=== PATIENT | female | born 1930 | race Caucasian/White ===

== ENCOUNTER 2016-08-13 09:29 | Outpatient (CLI) | payer MEDICARE, OTHER ==
[2016-08-13 18:12] LABS: BASOPHILS % (AUTO) 0.5 %; EOSINOPHILS # (AUTO) 0.1 10^3/uL (0.0-0.7); EOSINOPHILS % (AUTO) 2.5 %; LYMPHOCYTES % (AUTO) 19.9 %; MEAN CORPUSCULAR HEMOGLOBIN 31.7 pg (27.0-31.0); MEAN CORPUSCULAR HGB CONC 33.2 g/dL (32.0-36.0); MEAN CORPUSCULAR VOLUME 95.4 fL (81.0-99.0); MEAN PLATELET VOLUME 8.4 fL (7.9-10.8); MONOCYTES # (AUTO) 0.4 10^3/uL (0.0-1.0); MONOCYTES % (AUTO) 8.6 %; NEUTROPHILS # (AUTO) 3.4 10^3/uL (1.5-6.6); NEUTROPHILS % (AUTO) 68.5 %; NUCLEATED RED BLOOD CELLS AUTO 0.1 /100WBC; RED BLOOD COUNT 4.09 10^6/uL (4.20-5.40); RED CELL DISTRIBUTION WIDTH 13.3 % (12.0-15.0); UNCORRECTED WHITE BLOOD COUNT 4.9 x10^3/uL; WHITE BLOOD COUNT 4.9 x10^3/uL (4.8-10.8)
[2016-08-13 18:21] LABS: ALBUMIN/GLOBULIN RATIO 1.4 (1.0-2.2); BILIRUBIN,TOTAL 0.7 mg/dL (0.2-1.0); CALCIUM 9.3 mg/dL (8.5-10.3); CREATININE 0.8 mg/dL (0.4-1.0); POTASSIUM 4.3 mmol/L (3.5-5.0); TOTAL PROTEIN 7.1 g/dL (6.7-8.2)
== END 2016-08-13 09:30 | disposition home or self-care (01) ==
LOC: LAB.F 09:29
PROVIDERS: ATTEND Internal Medicine
DX: R53.83 Other fatigue (principal); E55.9 Vitamin D deficiency, unspecified
CPT/HCPCS: 36415; 80053; 82306; 82652; 84443; 85025

== ENCOUNTER 2017-05-06 11:30 | Outpatient (CLI) | payer MEDICARE, OTHER ==
[2017-05-06 12:13] LABS: ALBUMIN 4.4 g/dL (3.2-5.5); ALBUMIN/GLOBULIN RATIO 1.5 (1.0-2.2); BILIRUBIN,TOTAL 0.7 mg/dL (0.2-1.0); CALCIUM 9.6 mg/dL (8.5-10.3); CREATININE 0.8 mg/dL (0.4-1.0); TOTAL PROTEIN 7.3 g/dL (6.7-8.2)
== END 2017-05-06 11:31 | disposition home or self-care (01) ==
LOC: LAB 11:30
PROVIDERS: ATTEND Family Medicine
DX: E55.9 Vitamin D deficiency, unspecified (principal); R53.83 Other fatigue; I10 Essential (primary) hypertension
CPT/HCPCS: 36415; 80053; 82306; 84443

== ENCOUNTER 2017-05-06 15:36 | Outpatient (CLI) | payer MEDICARE, OTHER ==
--- NOTE | 2017-05-07 12:15 | XRAY Report ---
DATE OF SERVICE: 05/06/2017 TWO VIEW LEFT RIBS: 05/06/2017 CLINICAL INDICATION: Pain. FINDINGS: Oblique views of the left ribs were obtained, with a marker at the site of maximal tenderness. There is no evidence of a displaced rib fracture. No definite pneumothorax is appreciated on these oblique views FINDINGS: NO EVIDENCE OF A DISPLACED LEFT RIB FRACTURE. TD: 05/07/2017 12:14
--- NOTE | 2017-05-07 12:17 | XRAY Report ---
DATE OF SERVICE: 05/06/2017 THREE VIEW LUMBAR SPINE: 05/06/2017 CLINICAL INDICATION: Back pain. FINDINGS: AP, lateral, and coned down views of the lumbar spine demonstrate moderate to severe degenerative disk and facet disease. There is degenerative anterolisthesis of L4 on L5 by 1 cm, and irregularity of the superior end plate of L4, suspicious for a mild compression fracture, age indeterminate. The bowel gas pattern appears unremarkable. Degenerative levoscoliosis is present. IMPRESSION: MODERATE TO SEVERE DEGENERATIVE CHANGES, WITH POSSIBLE MILD COMPRESSION DEFORMITY OF L4. TD: 05/07/2017 12:16
--- NOTE | 2017-05-07 12:18 | XRAY Report ---
DATE OF SERVICE: 05/06/2017 TWO VIEW LEFT KNEE: 05/06/2017 CLINICAL INDICATION: Pain. FINDINGS: Frontal and lateral views of the left knee demonstrate no evidence of acute fracture. The joint spaces are preserved. No effusion is present. IMPRESSION: NORMAL LEFT KNEE. TD: 05/07/2017 12:17
== END 2017-05-06 15:37 | disposition home or self-care (01) ==
LOC: DI 15:36
PROVIDERS: ATTEND Family Medicine
DX: M51.36 Other intervertebral disc degeneration, lumbar region (principal); M47.896 Other spondylosis, lumbar region; M43.17 Spondylolisthesis, lumbosacral region; M41.56 Other secondary scoliosis, lumbar region; M25.562 Pain in left knee; E55.9 Vitamin D deficiency, unspecified; R53.83 Other fatigue; I10 Essential (primary) hypertension
CPT/HCPCS: 36415; 72100; 80053; 82306; 84443

== ENCOUNTER 2017-12-20 12:39 | Outpatient (CLI) | payer MEDICARE, OTHER ==
--- NOTE | 2017-12-20 14:07 | XRAY Report ---
Reason: CHEST PAIN,INTERMITTENT Procedure Date: 12/20/2017 Accession Number: [id number] / [id number] Procedure: XR - Ribs w/PA Chest LT CPT Code: FULL RESULT: EXAM: LEFT RIB RADIOGRAPHY EXAM DATE: 12/20/2017 12:59 PM. CLINICAL HISTORY: CHEST PAIN, INTERMITTENT. COMPARISON: RIBS 2 VIEW LT 05/06/2017 CHEST 2 VIEW PA/LAT 04/02/2016. TECHNIQUE: 1 view of the chest and 2 views of the ribs. FINDINGS: Bones: Diffuse osteopenia. No fracture or bone lesion. Lungs: Chronic left basilar opacity. No pneumothorax or pleural effusion. Right midlung calcified granuloma. Mediastinum: Heart and mediastinal contours are unremarkable. Other: None. IMPRESSION: 1. 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 2. No rib fracture evident. [facility]
== END 2017-12-20 12:40 | disposition home or self-care (01) ==
LOC: DI 12:39
PROVIDERS: ATTEND Nurse Practitioner Family
DX: R07.89 Other chest pain (principal)

== ENCOUNTER 2017-12-24 16:01 | Outpatient (CLI) | payer MEDICARE, OTHER ==
--- NOTE | 2017-12-24 18:02 | XRAY Report ---
Reason: FOOT JOINT PAIN,RIGHT Procedure Date: 12/24/2017 Accession Number: [id number] / [id number] Procedure: XR - Foot 2 View RT CPT Code: FULL RESULT: EXAM: RIGHT FOOT RADIOGRAPHY EXAM DATE: 12/24/2017 04:35 PM. CLINICAL HISTORY: Heel pain. No trauma. COMPARISON: None. TECHNIQUE: 2 views. FINDINGS: Bones: Small posterior calcaneal spur. Otherwise unremarkable. No fracture or other bone lesion. Joints: Mild metatarsus varus hallux valgus deformity with some hypertrophic changes of first metatarsal head. Possible first metatarsal head erosion. Mild generalized joint space narrowing. Otherwise unremarkable. Soft Tissues: Mild soft tissue swelling over first metatarsal head. IMPRESSION: 1. Small posterior calcaneal spur. Otherwise unremarkable calcaneus. 2. Mild bunion with questionable first metatarsal head erosion raising possibility of gout, versus artifact. [facility]
== END 2017-12-24 16:02 | disposition home or self-care (01) ==
LOC: DI 16:01
PROVIDERS: ATTEND Nurse Practitioner
DX: M79.671 Pain in right foot (principal); M77.31 Calcaneal spur, right foot; M21.611 Bunion of right foot

== ENCOUNTER 2018-03-31 10:19 | Outpatient (CLI) | payer MEDICARE, OTHER ==
[2018-03-31 17:45] LABS: BASOPHILS % (AUTO) 0.4 %; EOSINOPHILS # (AUTO) 0.1 10^3/uL (0.0-0.7); EOSINOPHILS % (AUTO) 1.1 %; HGB - HEMOGLOBIN 13.2 g/dL (12.0-16.0); LYMPHOCYTES # (AUTO) 1.1 10^3/uL (1.5-3.5); LYMPHOCYTES % (AUTO) 18.2 %; MEAN CORPUSCULAR HEMOGLOBIN 32.8 pg (27.0-31.0); MEAN CORPUSCULAR HGB CONC 33.6 g/dL (32.0-36.0); MEAN CORPUSCULAR VOLUME 97.8 fL (81.0-99.0); MEAN PLATELET VOLUME 7.5 fL (7.9-10.8); MONOCYTES # (AUTO) 0.5 10^3/uL (0.0-1.0); MONOCYTES % (AUTO) 8.7 %; NEUTROPHILS # (AUTO) 4.5 10^3/uL (1.5-6.6); NEUTROPHILS % (AUTO) 71.6 %; PLT - PLATELET COUNT 282 10^3/uL (130-450); RED BLOOD COUNT 4.03 10^6/uL (4.20-5.40); RED CELL DISTRIBUTION WIDTH 13.2 % (12.0-15.0); WHITE BLOOD COUNT 6.3 x10^3/uL (4.8-10.8)
[2018-03-31 18:00] LABS: ALBUMIN 4.3 g/dL (3.2-5.5); ALBUMIN/GLOBULIN RATIO 1.5 (1.0-2.2); BILIRUBIN,TOTAL 0.7 mg/dL (0.2-1.0); CALCIUM 9.7 mg/dL (8.5-10.3); CREATININE 0.8 mg/dL (0.4-1.0); TOTAL PROTEIN 7.1 g/dL (6.7-8.2)
== END 2018-03-31 10:20 | disposition home or self-care (01) ==
LOC: LAB.F 10:19
PROVIDERS: ATTEND Internal Medicine
DX: R53.83 Other fatigue (principal)
CPT/HCPCS: 36415; 80053; 84443; 85025